=== PATIENT | female | born 1990 | race African-American/Black ===

== ENCOUNTER 2017-12-06 14:21 | Emergency (ER) | payer OTHER ==
[~2017-12-06] VITALS: Ht 165.1 cm; Wt 57.2 kg
[~2017-12-06 14:21] MED LIST: NO MEDS
[2017-12-06] MEDS ORDERED: HYDROCODONE/APAP 5/325MG 1 EACH TABLET ONE (14:51)
--- NOTE | 2017-12-06 14:52 | NUR ---
27 Y/O FEMALE PLACED IN BED 1 C/O FLANK PAIN.
[2017-12-06] MEDS ORDERED: HYDROCODONE/APAP 5/325MG 1 EACH TABLET PO ONE (15:00)
[2017-12-06 15:07] LABS: BASOPHILS # (AUTO) 0.1 /CMM (0.0-0.2); BASOPHILS % (AUTO) 0.9 % (0.0-2.0); EOSINOPHILS % (AUTO) 1.3 % (0.0-6.0); HEMATOCRIT 44 % (33-45); HEMOGLOBIN 14.7 g/dL (11.5-14.8); LYMPHOCYTES # (AUTO) 1.8 /CMM (0.8-4.8); LYMPHOCYTES % (AUTO) 20.6 % (20.0-44.0); MEAN CORPUSCULAR HGB CONC 34 g/dl (31.0-36.0); MEAN CORPUSCULAR VOLUME 90 fL (82-100); MONOCYTES # (AUTO) 0.8 /CMM (0.1-1.30); MONOCYTES % (AUTO) 8.8 % (2.0-12.0); NEUTROPHILS # (AUTO) 6.1 /CMM (1.8-8.9); NEUTROPHILS % (AUTO) 68.4 % (43.0-81.0); PLATELET COUNT (AUTO) 432 /CMM (150-450); RED BLOOD CELL COUNT(AUTO) 4.85 MIL/uL (4.0-5.2); WHITE BLOOD COUNT (AUTO) 8.9 K/uL (4.3-11.0)
[2017-12-06 15:10] LABS: APPEARANCE,URINE Clear (CLEAR); BILIRUBIN,URINE Negative (NEGATIVE); BLOOD, URINE Negative Ery/uL (NEGATIVE); COLOR,URINE Yellow (YELLOW); KETONES,URINE Negative (NEGATIVE); LEUKOCYTE ESTERASE ,URINE Negative (NEGATIVE); NITRITE, URINE Negative (NEGATIVE); PH,URINE 5.5 (5.0-8.0); PROTEIN,URINE 100 mg/dl (NEGATIVE); UGLUCOSE Negative (NEGATIVE); UROBILINOGEN,URINE 0.2 EU/dL (0.2)
--- NOTE | 2017-12-06 15:13 | NUR ---
PT MEDICATED FOR FLANK PAIN. URINE OBTAINED AND SENT TO LAB
[2017-12-06 15:24] LABS: CALCIUM, SERUM 8.9 mg/dL (8.5-10.1); CREATININE 0.8 mg/dL (0.6-1.3); POTASSIUM 3.8 mmol/L (3.5-5.1)
[2017-12-06 15:30] LABS: ALBUMIN 3.9 g/dL (3.4-5.0); BILIRUBIN,DIRECT 0.1 mg/dL (0.0-0.2); BILIRUBIN,TOTAL 0.5 mg/dL (0.2-1.0); TOTAL PROTEIN, SERUM 7.7 g/dL (6.4-8.2)
--- NOTE | 2017-12-06 16:25 | NUR ---
FLANK PAIN RESOLVED. ACI GIVEN. PT DISCHARGED HOME TO FOLLOW UP WITH PMD.
[2017-12-06 16:28] VITALS: BP 138/78
== END 2017-12-06 16:31 | disposition home or self-care (01) ==
LOC: ER 14:24
DX: R10.32 Left lower quadrant pain (principal); R10.12 Left upper quadrant pain
CPT/HCPCS: 36415; 80048-TC; 80076-TC; 81000-TC; 83690-TC; 84703-TC; 85025-TC; A4606; Z7610

== ENCOUNTER 2019-03-11 15:43 | Emergency (ER) | payer OTHER ==
[~2019-03-11] VITALS: Ht 162.6 cm; Wt 55.8 kg
[2019-03-11] MEDS ORDERED: IV NS 0.9% 1,000 ML BAG IV ONE (16:00)
[2019-03-11] MEDS ORDERED: KETOROLAC TROMETHAMINE INJ 30 MG/ML VIAL IV ONE (16:00)
--- NOTE | 2019-03-11 16:00 | NUR ---
PT AAOX4. AMBULATORY. C/O FLANK PAIN AND LOWER ABD PAIN X3 WEEKS. +DIARRHEA, -N/V. PLACED ON MONITOR AND PULSE OX. VSS. MD AT BEDSIDE FOR EVAL. WILL CONTINUE TO MONITOR. NO ACUTE DISTRESS NOTED.
--- NOTE | 2019-03-11 16:02 | NUR ---
URINE SENT TO LAB
[2019-03-11 16:13] LABS: BASOPHILS # (AUTO) 0.1 /CMM (0.0-0.2); BASOPHILS % (AUTO) 0.8 % (0.0-2.0); EOSINOPHILS % (AUTO) 0.8 % (0.0-6.0); HEMATOCRIT 42 % (33-45); HEMOGLOBIN 13.8 g/dL (11.5-14.8); LYMPHOCYTES % (AUTO) 28.6 % (20.0-44.0); MEAN CORPUSCULAR HGB CONC 33 g/dl (31.0-36.0); MEAN CORPUSCULAR VOLUME 93 fL (82-100); MONOCYTES # (AUTO) 0.7 /CMM (0.1-1.30); MONOCYTES % (AUTO) 9.3 % (2.0-12.0); NEUTROPHILS # (AUTO) 4.3 /CMM (1.8-8.9); NEUTROPHILS % (AUTO) 60.5 % (43.0-81.0); PLATELET COUNT (AUTO) 416 /CMM (150-450); RED BLOOD CELL COUNT(AUTO) 4.51 MIL/uL (4.0-5.2); WHITE BLOOD COUNT (AUTO) 7.1 K/uL (4.3-11.0)
[2019-03-11] MEDS ORDERED: KETOROLAC TROMETHAMINE INJ 30 MG/ML VIAL ONE (16:13)
[2019-03-11 16:17] LABS: APPEARANCE,URINE Clear (CLEAR); BILIRUBIN,URINE Negative (NEGATIVE); BLOOD, URINE Negative Ery/uL (NEGATIVE); COLOR,URINE Yellow (YELLOW); KETONES,URINE Negative (NEGATIVE); LEUKOCYTE ESTERASE ,URINE Negative (NEGATIVE); NITRITE, URINE Negative (NEGATIVE); PH,URINE 7.5 (5.0-8.0); PROTEIN,URINE Negative (NEGATIVE); UGLUCOSE Negative (NEGATIVE); UROBILINOGEN,URINE 0.2 EU/dL (0.2)
--- NOTE | 2019-03-11 16:21 | NUR ---
US AT BEDSIDE
[2019-03-11 16:22] LABS: CALCIUM, SERUM 8.8 mg/dL (8.5-10.1); CREATININE 0.8 mg/dL (0.6-1.3); POTASSIUM 3.6 mmol/L (3.5-5.1)
[2019-03-11 16:34] LABS: ALBUMIN 3.8 g/dL (3.4-5.0); BILIRUBIN,DIRECT 0.1 mg/dL (0.0-0.2); BILIRUBIN,TOTAL 0.5 mg/dL (0.2-1.0); TOTAL PROTEIN, SERUM 7.4 g/dL (6.4-8.2)
--- NOTE | 2019-03-11 17:14 | NUR ---
Patient discharged to home in stable condition. Written and verbal after care instructions given. Patient verbalizes understanding of instruction and IV. PT ambulatory with a steady gait. IV removed. Catheter intact and site benign. Pressure and 4x4 applied to site. No bleeding noted.
[2019-03-11 17:15] VITALS: BP 122/82
== END 2019-03-11 17:24 | disposition home or self-care (01) ==
LOC: ER 15:46
DX: N83.201 Unspecified ovarian cyst, right side (principal); R19.7 Diarrhea, unspecified; Z60.2 Problems related to living alone
CPT/HCPCS: 36415; 76856; 80048; 80076; 81001; 84702; 84703; 85025; 96361; 96374; 99284; J1885; J7030; 81000-TC

== ENCOUNTER 2020-01-13 12:21 | Emergency (ER) | payer OTHER ==
[~2020-01-13] VITALS: Ht 162.6 cm; Wt 54.4 kg
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
--- NOTE | 2020-01-13 13:10 | NUR ---
Urine sample sent to lab.
[2020-01-13] MEDS ORDERED: HYDROCODONE/APAP 5/325MG TABLET ONE (13:20)
[2020-01-13] MEDS ORDERED: HYDROCODONE/APAP 5/325MG TABLET PO ONE (13:30)
[2020-01-13] MEDS ORDERED: TDAP [DIPH/PERTUSSIS/TET] 0.5 ML VIAL IM ONE ×2 (14:30→15:05)
[2020-01-13 15:17] VITALS: BP 125/96
== END 2020-01-13 15:17 | disposition home or self-care (01) ==
LOC: ER 12:24
DX: S80.811A Abrasion, right lower leg, initial encounter (principal); M54.2 Cervicalgia; M54.9 Dorsalgia, unspecified; Z60.2 Problems related to living alone; V49.49XA Driver injured in collision with other motor vehicles in traffic accident, initial encounter; Y93.89 Activity, other specified; Y92.413 State road as the place of occurrence of the external cause; Y99.8 Other external cause status
CPT/HCPCS: 72050-TC; 72070-TC; 72110-TC; 73590-TC; 84703-TC; 90715